=== PATIENT | female | born 1960 ===

== ENCOUNTER 2017-02-02 13:53 | Emergency (ER) | payer BC ==
[2017-02-02 14:32] VITALS: BP 189/98
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
--- NOTE | 2017-02-04 17:19 | UC ---
Progress - Progress Note Progress Note: call patient is symptoms continue please follow up--with pcp or return as needed
== END 2017-02-02 15:17 | disposition home or self-care (01) ==
LOC: UCEAST 13:53
DX: R10.9 Unspecified abdominal pain (principal); F17.210 Nicotine dependence, cigarettes, uncomplicated
CPT/HCPCS: 81003; 87077; 87086; 99211; G0463

== ENCOUNTER 2017-02-02 15:36 | Observation (INO) | payer BC ==
[2017-02-02 16:29] LABS: Hematocrit 43 % (35-47); Hemoglobin 14.6 g/dl (12.0-16.0); Mean Corpuscular HGB Conc 34 g/dl (31-36); Mean Corpuscular Hemoglobin 32 pg (27-31); Mean Corpuscular Volume 93 fL (80-97); Mean Platelet Volume 9 um3 (7.4-10.4); Red Blood Count 4.61 10^6/ul (4.0-5.4); Red Cell Distribution Width 14 % (10.5-15); White Blood Count 6.2 10^3/ul (3.5-10.8)
[2017-02-02 16:48] LABS: Albumin 3.9 g/dL (3.2-5.2); BUN/Creatinine Ratio 13.2 (8-20); C Reactive Protein 6.27 mg/L (< 5.00); Calcium 9.4 mg/dL (8.6-10.3); EGFR African American 114.3 (>60); EGFR Non-African American 88.9 (>60); Globulin 3.5 g/dL (2-4); Potassium 3.3 mmol/L (3.5-5.0); Total Bilirubin 0.6 mg/dL (0.2-1.0); Total Protein 7.4 g/dL (6.4-8.9)
[2017-02-02] MEDS ORDERED: Diltiazem TAB* 30 MG PO ONE (18:16)
--- NOTE | 2017-02-02 18:52 | RAD ---
INDICATION: ] Right upper quadrant pain COMPARISON: None TECHNIQUE: Longitudinal and transverse scans of the right upper quadrant were obtained. Doppler interrogation of the hepatic and portal venous system was performed. FINDINGS: Liver: There is hepatomegaly with hepatic steatosis. There are no masses . The liver measures 24.3 cm in cephalocaudal dimension. Vessels: There is normal hepatic and portal venous flow. Bile ducts: There is no evidence of intrahepatic ductal dilatation. The common duct measures 1.3 which is prominent and there is probably choledocholithiasis. Gallbladder: There are multiple calcified gallstones. The gallbladder wall is top normal in thickness. Pancreas: The visualized pancreas appears normal Right kidney: The right kidney is normal in size and echogenicity. There are no masses or calculi. There is no evidence of hydronephrosis. The right kidney measures 13.6 x 5.3 x 4.2 cm. IVC and aorta: The aorta and superior vena cava appear normal. Fluid: There is no ascites. Other: None. IMPRESSION: 1. Hepatomegaly with hepatic steatosis. 2. Cholelithiasis with suspected choledocholithiasis
[2017-02-02 19:51] LABS: Urine Bacteria Absent (Absent); Urine Bilirubin Negative (Negative); Urine Glucose Negative (Negative); Urine Nitrite Negative (Negative)
[2017-02-02] MEDS ORDERED: Acetaminophen TAB* 325 MG PO PRN (20:27)
[2017-02-02] MEDS ORDERED: Ondansetron INJ* 2 MG/ML VIAL IV PRN (20:27)
[2017-02-02] MEDS ORDERED: Dextrose 50% Syringe 50 ML* 25 GM/50 ML SYRINGE IV PUSH PRN (20:27)
[2017-02-02] MEDS ORDERED: Potassium Chlor TAB* 20 MEQ TAB.ER PO ONE (20:40)
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
--- NOTE | 2017-02-02 20:52 | RAD ---
INDICATION: Hypertension. Chest and abdominal pain COMPARISON: None TECHNIQUE: An AP portable view obtained at 2040 hours is submitted. FINDINGS: Bones/Soft Tissues: There are no acute bony findings. Cardiomediastinal: The cardiomediastinal silhouette is normal. Lungs: There are no infiltrates. Pleura: There are no pleural effusions. Other: None IMPRESSION: NO ACTIVE DISEASE
[2017-02-02] MEDS: Furosemide TAB* 40 MG PO SCH (22:32)
[2017-02-02] MEDS: Heparin VIAL(*) 5000 UNITS/ML VIAL (FIVE THOUSAND) SUBCUT SCH (22:40)
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
[2017-02-03 05:49] LABS: Hematocrit 41 % (35-47); Hemoglobin 14.2 g/dl (12.0-16.0); Mean Corpuscular HGB Conc 35 g/dl (31-36); Mean Corpuscular Hemoglobin 32 pg (27-31); Mean Corpuscular Volume 93 fL (80-97); Mean Platelet Volume 9 um3 (7.4-10.4); Red Blood Count 4.42 10^6/ul (4.0-5.4); Red Cell Distribution Width 14 % (10.5-15); White Blood Count 5.5 10^3/ul (3.5-10.8)
[2017-02-03] MEDS: Heparin VIAL(*) 5000 UNITS/ML VIAL (FIVE THOUSAND) SUBCUT SCH ×3 (06:01→20:05)
[2017-02-03 06:10] LABS: Albumin 3.6 g/dL (3.2-5.2); BUN/Creatinine Ratio 12.5 (8-20); Calcium 8.9 mg/dL (8.6-10.3); EGFR African American 122.6 (>60); EGFR Non-African American 95.3 (>60); Globulin 3.3 g/dL (2-4); Potassium 3.5 mmol/L (3.5-5.0); Total Bilirubin 0.7 mg/dL (0.2-1.0); Total Protein 6.9 g/dL (6.4-8.9)
[2017-02-03] MEDS: Furosemide TAB* 40 MG PO SCH ×2 (08:29→20:05)
[2017-02-03] MEDS: Metoprolol Succinate XL TAB* 100 MG PO SCH (08:29)
[2017-02-03] MEDS: Diltiazem TAB* 30 MG PO SCH ×2 (08:29→20:05)
[2017-02-03] MEDS: Insulin LISPRO* 1 UNITS UNIT SUBCUT SCH ×3 (08:30→17:23)
--- NOTE | 2017-02-03 12:46 | PN ---
Progress Note - Progress Note Date of Service: 02/03/17 SOAP: Subjective: Patient denies nausea or emesis. States she feels well. Wants to go home. States she just drank contrast agent. [] Objective: Initial Vitals Temp Pulse Resp BP Pulse Ox 97.0 F 69 14 185/97 98 02/02/17 15:40 02/02/17 15:40 02/02/17 15:40 02/02/17 15:40 02/02/17 15:40 GEN: Appears comfortable in no acute distress HEENT: anicteric sclera CHEST: clear to auscultation bilaterally CV: Regular rate rhythm s1 s2 no rubs or gallops ABD: soft, nontender throughout, normoactive bowel sounds EXT: no lower extremity edema [] Assessment: 57 year old female here with biliary-type pain and imaging suggesting choledocholithiasis. Labs reviewed and currently unremarkable. No evidence of cholangitis at this time. [] Plan: 1. Suspected choledocholithiasis: Discussed findings with patient again and she reported she was going to be discharged. Explained that given her sonographic findings, we have high clinical suspicion that she has CBD stone and discussed that I strongly recommend that she have an ERCP done this admission rather than as an outpatient. I also explained that CT imaging is not the best modality for determining whether she still has obstructed CBD or passed stone and that I would recommend a MRCP. She verbalized understanding of this. Plan per GI was ERCP on Saturday with Dr. Ponce. []
[2017-02-03] MEDS ORDERED: Iohexol 300* (CONTRAST) 10 ML SDV IV ONE (13:07)
[2017-02-03] MEDS ORDERED: Iodixanol* (CONTRAST) 320 MG/ML 100 ML SDV IV ONE (13:12)
--- NOTE | 2017-02-03 14:39 | RAD ---
CLINICAL HISTORY: Abdominal pain COMPARISON: Gallbladder ultrasound dated February 02, 2017 TECHNIQUE: Multiple contiguous axial CT scans were obtained of the abdomen and pelvis after the administration of intravenous contrast. Coronal and sagittal multiplanar reformations are submitted for review. Oral contrast was administered. Delayed images were obtained through the abdomen and pelvis. FINDINGS: LUNG BASES: The lung bases are clear. LIVER: The liver is diffusely low in attenuation compared to the spleen. There are no focal hepatic parenchymal masses. The liver measures 23 cm in long axis. BILE DUCTS: There is no intrahepatic or extrahepatic biliary dilatation. GALLBLADDER: The gallbladder is normal, without pericholecystic inflammatory change. PANCREAS: The pancreas is normal, without mass or ductal dilatation. SPLEEN: Normal in size and appearance. UPPER GI TRACT: Evaluation of the gastrointestinal tract is limited by incomplete gastric distention. The upper GI tract is unremarkable. SMALL BOWEL AND MESENTERY: The small bowel is normal in contour, course, and caliber. There is no obstruction or dilatation. COLON: There is diffuse mucosal thickening of the sigmoid colon ADRENALS: Normal bilaterally. KIDNEYS: The kidneys are normal in shape, size, contour, and axis. There is no hydronephrosis or nephrolithiasis. BLADDER: The bladder is smooth in contour. PELVIC ORGANS: The uterus is fibroid AORTA: The patient appears to be status post aortic bypass graft IVC: Unremarkable LYMPH NODES: There is no lymphadenopathy by size criteria. ABDOMINAL WALL: There is no evidence for abdominal wall hernia. BONES AND SOFT TISSUES: Degenerative changes are noted OTHER: None IMPRESSION: 1. HEPATOMEGALY WITH FATTY INFILTRATION OF THE LIVER. 2. DIFFUSE MUCOSAL THICKENING OF THE SIGMOID COLON, SUGGESTIVE OF COLITIS IN THE CORRECT CLINICAL SETTING. 3. FIBROID UTERUS
--- NOTE | 2017-02-03 15:29 | PN ---
Subjective Date of Service: 02/03/17 Interval History: Patient denies any abdominal pain today. Patient denies any nausea or vomiting. Patient denies any other complaints. Patient stated she would like to go home. This was discussed with Dr. Ponce who is not solutions analyst due to an error in the call schedule with the dimmer board operator. Dr. Ponce stated that she could go home after a CT of the abdomen and then she could follow up outpatient because he believed that this was not related to the gallbladder due to the lack of transaminitis. Dr. Granger then stated in his consult note that he would prefer that she stay for the ERCP. Patient then consented to stay after talking to Dr. Granger and CT scan. Patient states she didn't sleep well due to poorly fitting CPAP mask and that was one of the main reasons she wanted to go home. Family History: Unchanged from Admission Social History: Unchanged from Admission Past Medical History: Unchanged from Admission Objective Active Medications: Acetaminophen (Tylenol Tab*) 650 mg PO Q4H PRN PRN Reason: FEVER/PAIN Last Admin: 02/03/17 12:55 Dose: 650 mg Dextrose (D50w Syringe 50 Ml*) 12.5 gm IV PUSH .FOR FS < 60 - SS PRN PRN Reason: FS < 60 Diltiazem HCl (Cardizem Tab*) 90 mg PO BID [facility] Last Admin: 02/03/17 08:29 Dose: 90 mg Furosemide (Lasix Tab*) 40 mg PO BID [facility] Last Admin: 02/03/17 08:29 Dose: 40 mg Heparin Sodium (Porcine) (Heparin Vial(*)) 5,000 units SUBCUT Q8HR [facility] Last Admin: 02/03/17 15:00 Dose: Not Given Insulin Human Lispro (Humalog*) 0 units SUBCUT AC [facility] PRN Reason: Protocol Last Admin: 02/03/17 12:49 Dose: 6 units Metoprolol Succinate (Toprol Xl Tab*) 100 mg PO DAILY [facility] Last Admin: 02/03/17 08:29 Dose: 100 mg Ondansetron HCl (Zofran Inj*) 4 mg IV Q6H PRN PRN Reason: NAUSEA Vital Signs 02/02/17 02/02/17 02/02/17 20:27 21:42 23:25 Temperature 97.7 F 97.7 F 97.6 F Pulse Rate 62 62 57 Respiratory 16 16 20 Rate Blood Pressure 165/82 165/82 154/71 (mmHg) O2 Sat by Pulse 96 96 94 Oximetry 02/03/17 02/03/17 02/03/17 00:27 01:05 01:31 Temperature 97.7 F 97.7 F Pulse Rate 62 67 Respiratory 18 14 Rate Blood Pressure 149/82 149/82 (mmHg) O2 Sat by Pulse 94 94 98 Oximetry 02/03/17 02/03/17 02/03/17 04:00 04:27 07:34 Temperature 97.9 F 97.9 F 97.5 F Pulse Rate 56 56 61 Respiratory 18 16 16 Rate Blood Pressure 162/84 162/84 157/77 (mmHg) O2 Sat by Pulse 96 96 95 Oximetry 02/03/17 02/03/17 07:39 11:28 Temperature 97.9 F Pulse Rate 69 Respiratory 16 16 Rate Blood Pressure 153/79 (mmHg) O2 Sat by Pulse 95 Oximetry Oxygen Devices in Use Now: None Appearance: Patient is a 57yo female who appears stated age and is sitting comfortably in the hospital bed in [facility]. Eyes: No Scleral Icterus, PERRLA Ears/Nose/Mouth/Throat: NL Teeth, Lips, Gums, Clear Oropharnyx, Mucous Membranes Moist Neck: NL Appearance and Movements; NL JVP, No Thyroid Enlargement, Masses Respiratory: Symmetrical Chest Expansion and Respiratory Effort, Clear to Auscultation Cardiovascular: NL Sounds; No Murmurs; No JVD, RRR, No Edema Abdominal: NL Sounds; No Tenderness; No Distention, No Hepatosplenomegaly, - Lymphatic: No Cervical Adenopathy Extremities: No Edema, No Clubbing, Cyanosis Skin: No Rash or Ulcers, No Nodules or Sclerosis Neurological: Alert and Oriented x 3 Result Diagrams: 02/03/17 05:25 02/03/17 05:25 Additional Lab and Data: Lab Results 02/02/17 02/02/17 02/02/17 Range/Units 16:20 16:20 16:20 WBC 6.2 (3.5-10.8) 10^3/ul RBC 4.61 (4.0-5.4) 10^6/ul Hgb 14.6 (12.0-16.0) g/dl Hct 43 (35-47) % MCV 93 (80-97) fL MCH 32 H (27-31) pg MCHC 34 (31-36) g/dl RDW 14 (10.5-15) % Plt Count 148 L (150-450) 10^3/ul MPV 9 (7.4-10.4) um3 Neut % (Auto) 64.4 (38-83) % Lymph % (Auto) 28.7 (25-47) % Rice % (Auto) 5.2 (1-9) % Eos % (Auto) 0.7 (0-6) % Baso % (Auto) 1.0 (0-2) % Absolute Neuts (auto) 4.0 (1.5-7.7) 10^3/ul Absolute Lymphs (auto) 1.8 (1.0-4.8) 10^3/ul Absolute Monos (auto) 0.3 (0-0.8) 10^3/ul Absolute Eos (auto) 0 (0-0.6) 10^3/ul Absolute Basos (auto) 0.1 (0-0.2) 10^3/ul Absolute Nucleated RBC 0 10^3/ul Nucleated RBC % 0 Sodium 134 (133-145) mmol/L Potassium 3.3 L (3.5-5.0) mmol/L Chloride 98 L (101-111) mmol/L Carbon Dioxide 31 (22-32) mmol/L Anion Gap 5 (2-11) mmol/L BUN 9 (6-24) mg/dL Creatinine 0.68 (0.51-0.95) mg/dL Est GFR ( Amer) 114.3 (>60) Est GFR (Non-Af Amer) 88.9 (>60) BUN/Creatinine Ratio 13.2 (8-20) Glucose 258 H (70-100) mg/dL Lactic Acid 1.4 (0.5-2.0) mmol/L Calcium 9.4 (8.6-10.3) mg/dL Total Bilirubin 0.60 (0.2-1.0) mg/dL AST 18 (13-39) U/L ALT 20 (7-52) U/L Alkaline Phosphatase 75 (34-104) U/L C-Reactive Protein 6.27 H (< 5.00) mg/L Total Protein 7.4 (6.4-8.9) g/dL Albumin 3.9 (3.2-5.2) g/dL Globulin 3.5 (2-4) g/dL Albumin/Globulin Ratio 1.1 (1-3) Lipase 39 (11.0-82.0) U/L 02/02/17 02/02/17 02/02/17 16:20 16:20 16:20 WBC 6.2 RBC 4.61 Hgb 14.6 Hct 43 MCV 93 MCH 32 H MCHC 34 RDW 14 Plt Count 148 L MPV 9 Neut % (Auto) 64.4 Lymph % (Auto) 28.7 Rice % (Auto) 5.2 Eos % (Auto) 0.7 Baso % (Auto) 1.0 Absolute Neuts (auto) 4.0 Absolute Lymphs (auto) 1.8 Absolute Monos (auto) 0.3 Absolute Eos (auto) 0 Absolute Basos (auto) 0.1 Absolute Nucleated RBC 0 Nucleated RBC % 0 Sodium 134 Potassium 3.3 L Chloride 98 L Carbon Dioxide 31 Anion Gap 5 BUN 9 Creatinine 0.68 Est GFR ( Amer) 114.3 Est GFR (Non-Af Amer) 88.9 BUN/Creatinine Ratio 13.2 Glucose 258 H POC Glucose (mg/dL) Lactic Acid 1.4 Calcium 9.4 Total Bilirubin 0.60 AST 18 ALT 20 Alkaline Phosphatase 75 C-Reactive Protein 6.27 H Total Protein 7.4 Albumin 3.9 Globulin 3.5 Albumin/Globulin Ratio 1.1 Lipase 39 Urine Color Urine Appearance Urine pH Ur Specific Underwood Urine Protein Urine Ketones Urine Blood Urine Nitrate Urine Bilirubin Urine Urobilinogen Ur Leukocyte Esterase Urine WBC (Auto) Urine RBC (Auto) Ur Squamous Epith Cells Urine Bacteria Urine Glucose 02/02/17 02/03/17 02/03/17 19:20 00:03 05:25 WBC 5.5 RBC 4.42 Hgb 14.2 Hct 41 MCV 93 MCH 32 H MCHC 35 RDW 14 Plt Count 133 L MPV 9 Neut % (Auto) 67.9 Lymph % (Auto) 24.6 L Rice % (Auto) 5.6 Eos % (Auto) 0.9 Baso % (Auto) 1.0 Absolute Neuts (auto) 3.7 Absolute Lymphs (auto) 1.3 Absolute Monos (auto) 0.3 Absolute Eos (auto) 0 Absolute Basos (auto) 0.1 Absolute Nucleated RBC 0 Nucleated RBC % 0 Sodium Potassium Chloride Carbon Dioxide Anion Gap BUN Creatinine Est GFR ( Amer) Est GFR (Non-Af Amer) BUN/Creatinine Ratio Glucose POC Glucose (mg/dL) Lactic Acid 1.1 Calcium Total Bilirubin AST ALT Alkaline Phosphatase C-Reactive Protein Total Protein Albumin Globulin Albumin/Globulin Ratio Lipase Urine Color Yellow Urine Appearance Cloudy Urine pH 7.0 Ur Specific Underwood 1.015 Urine Protein Negative Urine Ketones Negative Urine Blood Negative Urine Nitrate Negative Urine Bilirubin Negative Urine Urobilinogen Negative Ur Leukocyte Esterase 2+ H Urine WBC (Auto) Trace(0-5/hpf) Urine RBC (Auto) Absent Ur Squamous Epith Cells Present H Urine Bacteria Absent Urine Glucose Negative 02/03/17 02/03/17 02/03/17 05:25 07:30 11:30 WBC RBC Hgb Hct MCV MCH MCHC RDW Plt Count MPV Neut % (Auto) Lymph % (Auto) Rice % (Auto) Eos % (Auto) Baso % (Auto) Absolute Neuts (auto) Absolute Lymphs (auto) Absolute Monos (auto) Absolute Eos (auto) Absolute Basos (auto) Absolute Nucleated RBC Nucleated RBC % Sodium 134 Potassium 3.5 Chloride 100 L Carbon Dioxide 26 Anion Gap 8 BUN 8 Creatinine 0.64 Est GFR ( Amer) 122.6 Est GFR (Non-Af Amer) 95.3 BUN/Creatinine Ratio 12.5 Glucose 324 H POC Glucose (mg/dL) 382 H 210 H Lactic Acid Calcium 8.9 Total Bilirubin 0.70 AST 20 ALT 21 Alkaline Phosphatase 79 C-Reactive Protein Total Protein 6.9 Albumin 3.6 Globulin 3.3 Albumin/Globulin Ratio 1.1 Lipase Urine Color Urine Appearance Urine pH Ur Specific Underwood Urine Protein Urine Ketones Urine Blood Urine Nitrate Urine Bilirubin Urine Urobilinogen Ur Leukocyte Esterase Urine WBC (Auto) Urine RBC (Auto) Ur Squamous Epith Cells Urine Bacteria Urine Glucose Assess/Plan/Problems-Billing Assessment: Patient is a 57yo female with a PMH significant for biliary colic, VAL, AAA, HTN who is admitted for RUQ pain with possible choledocholithiasis without transaminitis. Patient will undergo an ERCP tomorrow GI recommendation. - Patient Problems (1) RUQ abdominal pain Current Visit: Yes Status: Acute Code(s): R10.11 - RIGHT UPPER QUADRANT PAIN SNOMED Code(s): 400761772 Comment: Patient's pain has resolved. Appreciate GI consult and will continue with plan for ERCP tomorrow per original consult. CT of abdomen shows thickening of the wall of sigmoid colon but no other explanation of RUQ pain and no gall bladder inflammation. (2) History of biliary colic Current Visit: Yes Status: Acute Code(s): Z87.19 - PERSONAL HISTORY OF OTHER DISEASES OF THE DIGESTIVE SYSTEM SNOMED Code(s): 133968072 Comment: Previous history of pain attributed to the gall bladder increases the probability that this is gall bladder related. Would recommend surgical evaluation for cholecystectomy. (3) HTN (hypertension) Current Visit: Yes Status: Acute Code(s): I10 - ESSENTIAL (PRIMARY) HYPERTENSION SNOMED Code(s): 64836841 Comment: Slightly hypertensive at this time. Continue home metoprolol, cardizem, and lasix. (4) Diabetes mellitus Current Visit: Yes Status: Acute Code(s): E11.9 - TYPE 2 DIABETES MELLITUS WITHOUT COMPLICATIONS SNOMED Code(s): 35975530 Comment: Blood sugars significantly elevated. Will continue on SSI insulin and consider increase in metformin on D/C (5) VAL (obstructive sleep apnea) Current Visit: Yes Status: Acute Code(s): G47.33 - OBSTRUCTIVE SLEEP APNEA ( ADULT) (PEDIATRIC) SNOMED Code(s): 56339836 Comment: Continue CPAP, will attempt to get a more properly fitting mask. Status and Disposition: Patient is admitted inpatient pending ERCP. Disposition pending results of ERCP.
[2017-02-03] MEDS ORDERED: Ibuprofen TAB* 600 MG PO PRN (16:50)
[2017-02-04] MEDS: Heparin VIAL(*) 5000 UNITS/ML VIAL (FIVE THOUSAND) SUBCUT SCH ×2 (05:37→14:04)
[2017-02-04 07:27] LABS: Hematocrit 40 % (35-47); Hemoglobin 13.8 g/dl (12.0-16.0); Mean Corpuscular HGB Conc 34 g/dl (31-36); Mean Corpuscular Hemoglobin 32 pg (27-31); Mean Corpuscular Volume 94 fL (80-97); Mean Platelet Volume 9 um3 (7.4-10.4); Red Cell Distribution Width 14 % (10.5-15)
[2017-02-04 07:49] LABS: Albumin 3.4 g/dL (3.2-5.2); BUN/Creatinine Ratio 9.7 (8-20); Calcium 8.5 mg/dL (8.6-10.3); EGFR African American 127.1 (>60); EGFR Non-African American 98.9 (>60); Globulin 3.1 g/dL (2-4); Potassium 3.4 mmol/L (3.5-5.0); Total Bilirubin 0.6 mg/dL (0.2-1.0); Total Protein 6.5 g/dL (6.4-8.9)
[2017-02-04] MEDS: Metoprolol Succinate XL TAB* 100 MG PO SCH (09:09)
[2017-02-04] MEDS: Diltiazem TAB* 30 MG PO SCH (09:09)
[2017-02-04] MEDS: Furosemide TAB* 40 MG PO SCH (09:09)
[2017-02-04] MEDS: Insulin LISPRO* 1 UNITS UNIT SUBCUT SCH ×2 (09:13→14:03)
--- NOTE | 2017-02-04 14:02 | RAD ---
INDICATION: Gallbladder stones. COMPARISON: Comparison is made with a prior right upper quadrant ultrasound from February 02, [address] of the abdomen and pelvis from February 03, 2017. TECHNIQUE: Axial and coronal heavily T2-weighted images of the abdomen were obtained. Images were reconstructed in the maximum intensity projection format. FINDINGS: The liver and spleen are enlarged. No focal abnormality is seen on this noncontrast study. There are multiple gallstones present. No gallbladder wall thickening or pericholecystic fluid is noted. No intra or extrahepatic ductal distention is present. The common bile duct measures up to 5 mm in diameter. No intraluminal filling defect or calculus is seen within the biliary ducts. The pancreatic duct is partially visualized and appears nondistended. The adrenal glands and kidneys are normal in size. No mass is seen. There is no evidence for hydronephrosis. IMPRESSION: CHOLELITHIASIS, NO INTRA OR EXTRAHEPATIC DUCTAL DISTENTION IS SEEN. THERE IS NO EVIDENCE FOR CHOLEDOCHOLITHIASIS.
[2017-02-04 14:48] VITALS: BP 153/81
--- NOTE | 2017-02-04 19:43 | CONS ---
AMENDED REPORT TO CORRECT ACCOUNT NUMBER - ESIGNED BEFORE ADJUSTMENTS GASTROENTEROLOGY CONSULT FOLLOWUP: DATE OF CONSULT: 02/04/17 - ROOM #[id number] HISTORY: This patient admitted from the ER with right upper quadrant colicky pain, was felt to have biliary colic. Initial ultrasound was read as having gallstones, a 13-mm common duct and a suspicious filling defect in the common duct. Promptly after admission, the patient improved and she was pain free by the middle of the next day. LFTs were unchanged and indeed remained unchanged through the third day. She had no further pain. She had a CT scan. This did not show a dilated duct and the common duct was 5 mm on MRCP today with no filling defect. These figures disputed the ultrasound , which in retrospect was felt to have been false positive. Case was reviewed with the radiologist on 02/04/17. There was additionally a CT question of colon thickening though now there is no clinical complaint so the explanation is just a peristaltic variant or phase thickening the colon. EXAM: She is well, smiling, with no fever, chest clear, and abdomen is benign with no asymmetry or tenderness. No edema. IMPRESSION: The patient had gallbladder colic and she will be referred to a surgeon for consult and routine scheduling of cholecystectomy. There is no indication for ERCP at this time. [id number]/[facility] #: [id number] KYRIE
--- NOTE | 2017-02-05 03:52 | DS ---
DISCHARGE SUMMARY: DATE OF ADMISSION: 02/02/17 DATE OF DISCHARGE: 02/04/17 PRIMARY CARE PROVIDER: Apolonia Lynn NP MY ATTENDING WHILE IN THE HOSPITAL: Dave Enamorado MD * (DICTATED BY JUDSON ARMENTA) CONSULTING PROVIDERS: Brice Granger MD and Dr. Leo Ponce MD from Gastroenterology. PRIMARY DISCHARGE DIAGNOSES: 1. Biliary colic. 2. Diabetes mellitus. SECONDARY DIAGNOSES: 1. Hypertension. 2. Obstructive sleep apnea. 3. Abdominal aortic aneurysm. STUDIES DONE WHILE IN THE HOSPITAL: Gallbladder ultrasound in the emergency department read as choledocholithiasis, hepatomegaly with hepatic steatosis. ECG shows incomplete left bundle branch block, normal sinus rhythm, no ST segment changes, left axis deviation, no other abnormalities. Chest x-ray read as no active disease. Abdomen and pelvis CT read as hepatomegaly with fatty infiltration of liver, diffuse mucosal thickening of the sigmoid colon in the correct clinical setting and fibroid uterus. MRCP read as cholelithiasis , no intra or extrahepatic ductal distention. There is no evidence for choledocholithiasis. MEDICATIONS ON DISCHARGE: 1. Metformin 1000 mg p.o. b.i.d. 2. Metoprolol succinate 100 mg p.o. daily. 3. Diltiazem 90 mg p.o. b.i.d. 4. Furosemide 40 mg p.o. b.i.d. Medication discontinued on discharge: Metformin 500 mg p.o. b.i.d. New medication on discharge: Metformin 1000 mg p.o. b.i.d. HOSPITAL COURSE: This is a brief summary of the hospital course. For more detail, please see the history and physical from Trenton Ha NP from . In brief, Ms. Martínez is a 57-year-old female with past medical history significant for hypertension, AAA, biliary colic, prediabetes, and VAL who presented to the ER with several hours of waxing and waning right upper quadrant pain, worse with movement. The patient had a similar episode several years ago that has been controlled with avoidance of fatty foods. Since an ultrasound shows what appeared to be cholelithiasis, choledocholithiasis and she was admitted to the hospital with a GI consult and a plan for ERCP on Saturday. The patient improved overnight with entire cessation of her abdominal pain and no nausea, vomiting or any other acute complaints overnight. GI was consulted and due to a mix-up in the call schedule, both Dr. Leo Ponce and Dr. Granger were consulted with differing opinions. Dr. Ponce stated that because she had no elevated liver enzymes, it was unlikely she had choledocholithiasis and requested a CT of her abdomen with and without contrast to look for other causes of abdominal pain. Dr. Granger, basing his opinion on the ultrasound results, stated that she should stay for the ERCP on Saturday for definitive treatment of presumptive choledocholithiasis, which would not be shown on the CT scan of the abdomen. The patient was initially hoping to leave , but when the CT scan showed no other explanation, she decided to stay for the ERCP but due to other obligations, Dr. Ponce was unavailable for an ERCP on Saturday and an MRCP was performed, which showed no choledocholithiasis but persistent ductal dilation for an unknown cause. The patient continued to be asymptomatic overnight and showed no transaminitis. The patient will be discharged to home. As discussed, we are going to follow up with the surgeon for cholecystectomy outpatient. The patient was persistently hyperglycemic while in the hospital and off her metformin. This was controlled with in the hospital. PHYSICAL EXAMINATION ON DATE OF DISCHARGE: General: The patient is a 57-year- old female who appears stated age and sitting comfortably in the exam bed in no acute distress. Vital signs from 02/04/17 at 08:19, temperature 97.9, pulse rate 64, respiratory rate 20, oxygen saturation 96%, blood pressure 153/76. HEENT: Head normocephalic, atraumatic. Eyes: Sclerae anicteric. No conjunctival injection. Mouth: Pharynx nonerythematous. Mucous membranes moist without pallor or jaundice. The patient is missing several teeth. Neck: Supple, nontender. No lymphadenopathy. No carotid bruits auscultated. Cardiac: Regular rate and rhythm. No clicks, murmurs, gallops, or rubs. Respiratory: Good air exchange bilaterally. The patient had rhonchi in the bilateral middle lobes that resolved with coughing. Abdomen: Obese, soft, nontender, nondistended. Bowel sounds present and normoactive in all 4 quadrants. No hepatosplenomegaly. Hunt's sign negative. Genitourinary: No suprapubic tenderness or CVA tenderness. Skin: Clean, dry, intact. The patient stubbed her toe and has a bruise on the tip of her left toe with a split nail. The patient has significant thickening of her toenails without erythema, infection or ulcer. Neuro: Cranial nerves II through XII grossly intact. Alert and oriented x3. Gait: Normal. Psychiatric: The patient is pleasant and cooperative. LABORATORY DATA: Hemoglobin 13.8, hematocrit 40, MCH 32, platelet count 124, 000. Sodium 135, potassium 3.4, chloride 103, carbon oxide 26, anion gap 6, BUN 6, creatinine 0.62, glucose 252, calcium 8.5, AST 21, ALT 21. LFTs are consistent with previous day and show no elevation. DISCHARGE PLAN: The patient will be discharged to follow up with her primary care doctor where she will obtain a referral to a surgeon for cholecystectomy due to multiple episodes of biliary colic. The patient will also follow up with her primary care doctor regarding lab work she received earlier before her hospitalization, which included an A1c due to her uncontrolled diabetes in the hospital. The patient will have her metformin that was increased 1000 mg p.o. b.i.d. from 500 mg p.o. b.i.d. The patient should also follow up with a fire observer for routine diabetic foot care and for toenail trimming to avoid ulcers and infections. The patient was receptive to smoking cessation and materials were included with discharge packet for treatments for smoking cessation. TIME SPENT: Approximately 60 minutes were spent on this discharge, 30 of which was spent [id number] with the patient obtaining the history and physical and discussing treatment options. JUDSON ARMENTA [id number]/[facility] #: [id number] KYRIE
--- NOTE | 2017-02-08 12:35 | ED ---
Azul Corbin Nilda, scribed for Xavier Shirley MD on 02/02/17 at 1825 . Abdominal Pain/Female - HPI Summary HPI Summary: Patient is a 57 y.o. F presenting from [facility] to [facility] with a chief complaint of dull RUQ pain since 0500 this morning. Pain is presently rated 2/10 at rest but is aggravated by cough, palpation, and movement. Symptoms have spontaneously improved slightly since onset. Patient had 5 BM today that were initially normal but progressively became diarrhea (foamy, dark) as the day went on. Patient also reports cough, vaginal pruritus, and vaginal discharge. Patient denies loss of appetite, pain radiating to shoulder blade, fever, chills, cardiovascular problems, and respiratory problems. [facility] confirmed patient has a UTI. - History of Current Complaint Chief Complaint: EDAbdPain Stated Complaint: RT FLANK PAIN-SENT FROM Time Seen by Provider: 02/02/17 16:00 Hx Obtained From: Patient Onset/Duration: Sudden Onset, Lasting Hours Timing: Constant Severity Currently: Mild Pain Intensity: 2 Pain Scale Used: 0-10 Numeric Location: Discrete At: RUQ Character: Dull Aggravating Factor(s): Movement, Other: - coughing and palpation Alleviating Factor(s): Spontaneous Resolution - slightly improved since onset Associated Signs and Symptoms: Positive: Other: - diarrhea (foamy, dark), cough , vaginal pruritus, and vaginal discharge. Patient denies loss of appetite, pain radiating to shoulder blade, fever, chills, cardiovascular problems, and respiratory problems Allergies/Adverse Reactions: Allergies Allergy/AdvReac Type Severity Reaction Status Date / Time No Known Allergies Allergy Verified 02/02/17 14:25 Home Medications: Home Medications Metoprolol Succinate XL TAB* [Toprol XL TAB*] 100 mg PO DAILY 02/02/17 [History Confirmed 02/02/17] PMH/Surg Hx/FS Hx/Imm Hx Endocrine/Hematology History: Reports: Hx Diabetes Sensory History: Denies: Hx Deafness - Surgical History Surgery Procedure, Year, and Place: AAA repair. c sections. lacerated liver repair d/t trauma Infectious Disease History: No Infectious Disease History: Denies: History Other Infectious Disease, Traveled Outside the [place] in Last 30 Days - Family History Known Family History: Positive: Hypertension - Social History Alcohol Use: None Substance Use Type: Reports: None Smoking Status (MU): Heavy Every Day Tobacco Smoker Amount Used/How Often: 1 PPD Review of Systems Negative: Fever, Chills Negative: Erythema Negative: Sore Throat Negative: Chest Pain Positive: Cough. Negative: Shortness Of Breath Positive: Abdominal Pain - RUQ, Diarrhea. Negative: Vomiting, Nausea Positive: discharge, other - vaginal pruritus. Negative: dysuria, hematuria Positive: Other - negative shoulder pain. Negative: Myalgia, Edema Negative: Rash Neurological: Other - negative: dizziness All Other Systems Reviewed And Are Negative: Yes Physical Exam - Summary Physical Exam Summary: Constitutional: Well-developed, Well-nourished, Alert. (-) Distressed Skin: Warm, Dry HENT: Normocephalic; Atraumatic Eyes: Conjunctiva normal Neck: Musculoskeletal ROM normal neck. (-) JVD, (-) Stridor, (-) Tracheal deviation Cardio: Rhythm regular, rate normal, Heart sounds normal; Intact distal pulses; The pedal pulses are 2+ and symmetric. Radial pulses are 2+ and symmetric. (-) Murmur Pulmonary/Chest wall: Effort normal. (-) Respiratory distress, (-) Wheezes, (-) Rales Abd: Soft, RUQ Tenderness, (-) Distension, (-) Guarding, (-) Rebound Musculoskeletal: (-) Edema Lymph: (-) Cervical adenopathy Neuro: Alert, Oriented x3 Psych: Mood and affect Normal Triage Information Reviewed: Yes Vital Signs On Initial Exam: Initial Vitals Temp Pulse Resp BP Pulse Ox 97.0 F 69 14 185/97 98 02/02/17 15:40 02/02/17 15:40 02/02/17 15:40 02/02/17 15:40 02/02/17 15:40 Vital Signs Reviewed: Yes - Sherri Coma Scale Coma Scale Total: 15 Diagnostics - Vital Signs Vital Signs Temp Pulse Resp BP Pulse Ox 02/02/17 17:30 60 162/92 93 02/02/17 17:16 64 161/88 94 02/02/17 17:07 67 95 02/02/17 17:05 182/102 02/02/17 15:40 97.0 F 69 14 185/97 98 - Laboratory Lab Results: Lab Results 02/02/17 02/02/17 02/02/17 Range/Units 16:20 16:20 16:20 WBC 6.2 (3.5-10.8) 10^3/ul RBC 4.61 (4.0-5.4) 10^6/ul Hgb 14.6 (12.0-16.0) g/dl Hct 43 (35-47) % MCV 93 (80-97) fL MCH 32 H (27-31) pg MCHC 34 (31-36) g/dl RDW 14 (10.5-15) % Plt Count 148 L (150-450) 10^3/ul MPV 9 (7.4-10.4) um3 Neut % (Auto) 64.4 (38-83) % Lymph % (Auto) 28.7 (25-47) % [place] % (Auto) 5.2 (1-9) % Eos % (Auto) 0.7 (0-6) % Baso % (Auto) 1.0 (0-2) % Absolute Neuts (auto) 4.0 (1.5-7.7) 10^3/ul Absolute Lymphs (auto) 1.8 (1.0-4.8) 10^3/ul Absolute Monos (auto) 0.3 (0-0.8) 10^3/ul Absolute Eos (auto) 0 (0-0.6) 10^3/ul Absolute Basos (auto) 0.1 (0-0.2) 10^3/ul Absolute Nucleated RBC 0 10^3/ul Nucleated RBC % 0 Sodium 134 (133-145) mmol/L Potassium 3.3 L (3.5-5.0) mmol/L Chloride 98 L (101-111) mmol/L Carbon Dioxide 31 (22-32) mmol/L Anion Gap 5 (2-11) mmol/L BUN 9 (6-24) mg/dL Creatinine 0.68 (0.51-0.95) mg/dL Est GFR ( Amer) 114.3 (>60) Est GFR (Non-Af Amer) 88.9 (>60) BUN/Creatinine Ratio 13.2 (8-20) Glucose 258 H (70-100) mg/dL Lactic Acid 1.4 (0.5-2.0) mmol/L Calcium 9.4 (8.6-10.3) mg/dL Total Bilirubin 0.60 (0.2-1.0) mg/dL AST 18 (13-39) U/L ALT 20 (7-52) U/L Alkaline Phosphatase 75 (34-104) U/L C-Reactive Protein 6.27 H (< 5.00) mg/L Total Protein 7.4 (6.4-8.9) g/dL Albumin 3.9 (3.2-5.2) g/dL Globulin 3.5 (2-4) g/dL Albumin/Globulin Ratio 1.1 (1-3) Lipase 39 (11.0-82.0) U/L Result Diagrams: 02/02/17 16:20 02/02/17 16:20 Lab Statement: Any lab studies that have been ordered have been reviewed, and results considered in the medical decision making process. - Radiology CXR Radiology Interpretation Completed By: Radiologist - No acute disease. ED Physician reviewed report and agrees. - Additional Comments Diagnostic Additional Comments: US Gallbladder reveals: 1. Hepatomegaly with hepatic steatosis 2. Cholelithiasis with suspected choledocholithiasis ED Physician reviewed report and agrees. Abdominal Pain Fem Course/Dx - Course Course Of Treatment: Patient is a 57 y.o. F presenting from [facility] to [facility] with a chief complaint of dull RUQ pain since 0500 this morning. Pain is rated 2/10 at rest but is aggravated by cough, palpation, and movement. Symptoms have spontaneously improved slightly since onset.. Patient also reports 5 BM today that increasing became diarrhea (foamy, dark), cough, vaginal pruritus, and vaginal discharge. Patient denies loss of appetite, pain radiating to shoulder blade, fever, chills, cardiovascular problems, and respiratory problems. [facility] confirmed patient has a UTI. US Gallbladder reveals: 1.Hepatomegaly with hepatic steatosis. 2.Cholelithiasis with suspected choledocholithiasis. ED Physician reviewed report and agrees. CXR, per radiologist, reveals no active disease. ED Physician reviewed report and agrees. [1925] Consult Dr Granger ( Gastro) recommended ERCP, admission to hospital, and no antibiotics. [1935] Dr. Ponce (Gastro) available for ERCP on 02/04/17. [202]Dr. Kapoor ( Hospitalist) will admit with a diagnosis of choledocholithiasis. - Diagnoses Provider Diagnoses: Choledocholithiasis - Provider Notifications Discussed Care Of Patient With: Brice Granger - Gastro Time Discussed With Above Provider: 19:25 Instructed by Provider To: Other - Recommended ERCP, admission to hospital, and no antibiotics. Discharge - Discharge Plan Condition: Good Disposition: ADMITTED TO [facility] The documentation as recorded by the Azul márquez Nilda accurately reflects the service I personally performed and the decisions made by me, Xavier Shirley MD.
== END 2017-02-04 14:45 | disposition home or self-care (01) ==
LOC: ED 15:36 → INTOOBSV 20:25 → MED 20:25
PROVIDERS: ADMIT Hospitalist; ATTEND Hospitalist
DX: K80.20 Calculus of gallbladder without cholecystitis without obstruction (principal); R10.11 Right upper quadrant pain; K76.0 Fatty (change of) liver, not elsewhere classified; E11.9 Type 2 diabetes mellitus without complications; Z79.84 Long term (current) use of oral hypoglycemic drugs; I10 Essential (primary) hypertension; F17.210 Nicotine dependence, cigarettes, uncomplicated; E66.01 Morbid (severe) obesity due to excess calories; Z79.899 Other long term (current) drug therapy; G47.33 Obstructive sleep apnea (adult) (pediatric); I44.7 Left bundle-branch block, unspecified
CPT/HCPCS: 36415; 71010; 74177; 74181; 76376; 76705; 80053; 81003; 81015; 83036; 83605; 83690; 85025; 86140; 87086; 93005; 94660; 99211; 99283; 99406; A9270-GY; G0378; G0463; J1644; Q9967